=== PATIENT | female | born 1935 | race Caucasian/White ===

== ENCOUNTER → 2016-10-26 | Outpatient (CLI) | payer MEDICARE, OTHER ==
[~2016-10-26] MED LIST: HYDR-3881 PO; ONDN4T PO; TRM50T PO
[2016-10-26 15:14] LABS: BASOPHILS % (AUTO) 0 % (0-2); EOSINOPHILS # (AUTO) 0.2 10^3uL; EOSINOPHILS % (AUTO) 3 % (0-4); LYMPHOCYTES # (AUTO) 1.8 X10^3; MEAN CORPUSCULAR HEMOGLOBIN 29.9 PG (26.0-34.0); MEAN CORPUSCULAR HGB CONC 33.3 g/dL (31.0-37.0); MEAN CORPUSCULAR VOLUME 90 FL (80-100); MEAN PLATELET VOLUME 9.3 FL (6.0-9.5); MONOCYTES # (AUTO) 0.5 X10^3; MONOCYTES % (AUTO) 8 % (3-11); NEUTROPHILS # (AUTO) 3.6 X10^3; NEUTROPHILS % (AUTO) 59 % (51-67); PLATELET COUNT 195 10^3uL (150-450); WHITE BLOOD COUNT 6.08 10^3uL (4.0-11.0)
[2016-10-26 15:34] LABS: ALBUMIN 4.2 g/dL (3.4-5.0); ANION GAP 17.2 MEQ/L (3-15); CALCULATED IONIZED CALCIUM 4.2 mg/dL (3.8-4.6); TOTAL PROTEIN 6.9 g/dL (6.4-8.5)
== END ==
LOC: LAB 14:36
PROVIDERS: ATTEND Internal Medicine Hematology & Oncology
DX: C50.512 Malignant neoplasm of lower-outer quadrant of left female breast (principal); Z79.899 Other long term (current) drug therapy
CPT/HCPCS: 36415; 80053; 82306; 85025

== ENCOUNTER → 2016-11-03 | Outpatient (CLI) | payer MEDICARE, OTHER ==
[2016-11-03 18:45] VITALS: BP 149/62
--- NOTE | 2016-11-03 18:45 | Urgent Care T Sheet Gen (E) ---
Intake General Temperature (Fahrenheit): 96.2 Pulse: 65 Blood Pressure Systolic: 149 Blood Pressure Diastolic: 62 Respirations: 20 SPO2: 94 Chief Complaint: cut right 2nd finger Source: Patient History of Present Illness Initial Comments Pt notes just prior to arrival she cut her right 2nd finger at home with a knife. She couldn't get the bleeding to stop so she came in. No loss of function of the finger. She is "pretty sure" she is up to date on her tetanus shot. Allergies: Coded Allergies: No Known Allergies (Verified Allergy, Unknown, 10/20/15) Home Meds No Active Prescriptions or Reported Meds Respiratory Constitutional Symptoms: No syptoms reported EENTM: No symptoms reported Respiratory: No symptoms reported Cardiovascular: No symptoms reported Gastrointestinal/Abdominal: No symptoms reported Genitourinary: No symptoms reported Skin: See HPI Other (laceration) All Other Systems Reviewed Remaining Systems: All other systems reviewed with negative findings Past Ymgbeel-Siufvi-Xzfzff Hx Patient's Social History Alcohol Use: Denies Use Smoking Status: Former smoker Recent foreign travel: No Surgeries/Hospitalizations Hospitalization/Surgery Hx: Colostomy, Hysterectomy, small bowel obstruction 2011 Colostomy reversal with concurrent release of adhesions and repair mult abd hernias Respiratory Respiratory History: None Cardiovascular Cardiovascular History: None Neuro/Muscular Neuro/Muscular History: None Comment: syncopal episode Reproductive System Sexually Transmitted Diseases: No Genitouinary Genitourinary History: None Gastrointestinal GI/Endocrine History: Other, see comment Comment: Reversal of colostomy Diabetes Diabetes: No HEENT Impaired Vision: Glasses Hearing Impaired: None Integumentary Integumentary History: Other, see comments Comment: brace on left wrist broke arm close to [facility] Cancer History of Cancer?: Yes Cancer type: breast Psychosocial Behavior Disorders: None Blood Transfusions Hx of Blood transfusions: No Reaction to blood transfusion: No Physical Exam Physical Exam General Appearance: WD/WN No apparent distress Respiratory Exam: Lungs clear Normal breath sounds Cardiovascular Exam: Regular rate, rhythm No edema Skin Exam: Other (On exam of right 2nd finger: At distal tip of finger pt had a superficial "v" shaped laceration. Bleeding well controlled. SHe has full ROM of finger with no pain. Neurovascular exam of right 5th finger intact. ) Procedures/Interventions Laceration Repair : Location Modifier: Right, Distal, 2nd Digit Wound Location: Finger Type: Laceration Wound Appearance: Well Approximated, Clean/Dry Laceration Depth: Superficial Lesion Length: 1.0 Laceration Explored: Clean Irrigated w/Saline (mls): 10 Closure Supplies: Wound Adhesive Sterile Dressing Applied: Yes Progress Laceration was irrigated with Sterile Saline. Applied Dermabond to close the laceration. Sterile dressing was applied. Pt tolerated the procedure well. Medications Administered Medications Adminstered: Dermabond Departure Urgent Care Impression Chief Complaint: cut right 2nd finger Impression: Primary Impression: Superficial laceration of right hand Qualified Code: S61.411A - Laceration without foreign body of right hand, initial encounter Departure Disposition: HOME OR SELF-CARE Condition: Stable Referrals: SHANTANU VINSON MD (PCP) Additional Instructions: Discussed with patient regarding her last tetanus booster. Patient is "pretty sure she is up to date"- she believes it was in the last 5 years. Because of her injury and her uncertainty I would recommend a tetanus booster. Pt declines. She notes she will contact her PCP tomorrow to confirm the date. She understands the risks of note having recent tetanus booster. Keep area clean and dry. Follow-up with Primary Care Provider in 10-14 days. Return to ER or UC if symptoms get worse or further concern. Discharge instructions verbally given to Patient. Patient verbalize understanding of discharge instructions. Scripts No Active Prescriptions or Reported Meds End of report . MARTIN BURKS Nov 03, 2016 18:45
== END ==
LOC: MHUC 18:05
PROVIDERS: ATTEND Physician Assistant
DX: S61.210A Laceration without foreign body of right index finger without damage to nail, initial encounter (principal); W26.0XXA Contact with knife, initial encounter; Y92.009 Unspecified place in unspecified non-institutional (private) residence as the place of occurrence of the external cause
CPT/HCPCS: 12001; 99213

== ENCOUNTER → 2016-11-13 | Outpatient (CLI) | payer MEDICARE, OTHER ==
--- NOTE | 2016-11-13 13:56 | Diagnostic Imaging Report ---
INDICATION: Personal history breast cancer. COMPARISON: 10/21/2015. EXAM: Bilateral digital mammography with computer-assisted detection was performed. FINDINGS: The breasts are moderately dense. Right breast: No dominant mass, suspicious microcalcification, or other significant abnormality is identified. Left breast: The mass previously identified in the upper-outer left breast is no longer present. Lumpectomy changes are present. There is no evidence for residual or new lesion. Benign calcification is present. IMPRESSION: Interval left lumpectomy. No recurrence or new lesion. Followup left breast in 6 months. ACR BI-RADS Category 3: Probably benign findings. Result letter will be mailed to the patient. Note: At least 10% of breast cancer is not imaged by mammography. Dictated by: Dictated on workstation # [id number]
== END ==
LOC: RAD 12:50
PROVIDERS: ATTEND Internal Medicine Hematology & Oncology
DX: C50.212 Malignant neoplasm of upper-inner quadrant of left female breast (principal)